=== PATIENT | male | born 1995 | race Caucasian/White ===

== ENCOUNTER → 2023-06-02 09:14 | Outpatient (CLI) | payer OTHER, SELFPAY ==
--- NOTE | 2023-06-02 | DI.ECHO.S_ITS ---
[place] [facility]---------+ [facility] +---------+ : : [address] : [address] : : : : [id number] : : : : Phone: [phone]+ Echocardiogram Report + + :Name: EMMY BOYD Study Date: 06/02/2023 Height: 72 in : :[facility] ReadingLocation: Weight: 196 lb : : Gender: Male BSA: 2.1 m2 : :: 1995 Age: 28 yrs BP: 138/96 mmHg: :Reason For Study: Chest Pain : :Ordering Physician: ALICIA, : :ELAN Performed By: Rosario Almaguer : :Referring: ELAN VARGAS : + + Interpretation Summary Normal echo study. Procedure: A two-dimensional transthoracic echocardiogram with color flow and Doppler was performed. The study quality was technically adequate. The patient had an echocardiogram, but there is no comparison study available. The patient was in a bradycardic rhythm during the exam. Left Ventricle: The left ventricle appears normal in size, wall thickness, and systolic function without any focal wall motion abnormalities. The ejection fraction is estimated to be 55-60%. Diastolic parameters suggest probable normal left ventricular diastolic function and normal filling pressures. Right Ventricle: The right ventricle is normal in size and function. Atria: The left atrial size is normal. Right atrial size is normal. There is no Doppler evidence for an interatrial shunt. Mitral Valve: The mitral valve is normal. There is no mitral valve stenosis. There is trace mitral regurgitation. Aortic Valve: The aortic valve is trileaflet. The aortic valve opens well. There is no aortic valve stenosis. No aortic regurgitation is present. Tricuspid Valve: The tricuspid valve leaflets are thin and pliable. There is no tricuspid stenosis. There is trace tricuspid regurgitation. The right ventricular systolic pressure is estimated to be at least 18 mmHg based on an estimated right atrial pressure of 3 mm Hg. Pulmonic Valve: The pulmonic valve leaflets are thin and pliable; valve motion is normal. There is no pulmonic valvular stenosis. There is trace pulmonic regurgitation. Great Vessels: The aortic root is normal size. The ascending aorta is normal in size. The pulmonary artery is normal size. The inferior vena cava was not well visualized. Pericardium/ Pleura There is no pericardial effusion. There is no pleural effusion. MMode/2D Measurements & Calculations LVIDd: 5.0 cm LVOT diam: 2.1 cm LVIDs: 3.7 cm Ao root diam: 2.8 cm FS: 26.0 % asc Aorta Diam: 2.7 cm IVSd: 0.90 cm LVPWd: 0.70 cm LV kline. diameter/BSA (cm/m^2): 2.4 LV sys. diameter/BSA (cm/m^2): 1.8 LA A2 area: 14.6 cm2 RA long axis: 4.9 cm LA A4 area: 12.1 cm2 RA area: 13.9 cm2 LA length (vol): 4.6 cm RA vol: 33.7 ml LA vol: 32.8 ml RA : 16.0 ml/m2 LA vol index: 15.5 ml/m2 RVD1 (basal): 3.5 cm LVLs ap4: 7.0 cm LVLd ap2: 7.8 cm TAPSE_phl: 1.9 cm LVLs ap2: 6.1 cm Doppler Measurements & Calculations Ao V2 max: 117.3 cm/sec LVOT Max Khanh: 125.7 cm/sec Ao V2 mean: 79.8 cm/sec LV V1 max P.3 mmHg Ao max P.0 mmHg LV V1 VTI: 23.6 cm Ao mean P.0 mmHg YOHANNES(I,D): 3.2 cm2 Ao V2 VTI: 25.8 cm YOHANNES(V,D): 3.7 cm2 sev ratio: 0.91 YOHANNES indexed to BSA (cm^2/m^2): 1.5 MV E max khanh: 89.5 cm/sec TR max khanh: 193.0 cm/sec MV A max khanh: 49.4 cm/sec TR max P.9 mmHg MV E/A: 1.8 PA V2 max: 111.0 cm/sec Med Peak E' Khanh: 11.8 cm/sec PA V2 mean: 74.2 cm/sec E/E' med: 7.6 PA mean P.0 mmHg Lat Peak E' Khanh: 20.0 cm/sec PA pr(Accel): 18.2 mmHg E/E' lat: 4.5 E/e' average: 6.0 MV dec time: 0.18 sec SV(LVOT): 81.7 ml AV VR_phl: 1.1 YOHANNES(VTI)/BSA_phl: 1.5 Electronically signed by: Cliff Elizondo on Reading Physician:06/02/2023 11:38 AM
== END ==
PROVIDERS: Referring Provider Chiropractor; Visit Provider Chiropractor
DX: R07.9 Chest pain, unspecified (principal)
CPT/HCPCS: 93306